=== PATIENT | male | born 1995 | race Caucasian/White ===

== ENCOUNTER 2019-06-18 06:41 | Emergency (ER) | payer OTHER ==
[~2019-06-18] VITALS: Ht 180.3 cm; Wt 77.3 kg
[2019-06-18] MEDS ORDERED: ONDANSETRON 4 MG ORAL DISINTEGRATING TAB (Q0162 PER 1MG) PO ONE (07:15)
[2019-06-18] MEDS ORDERED: ONDA4TAB6 PO (08:01)
[2019-06-18 08:22] VITALS: BP 142/62
== END 2019-06-18 08:28 | disposition home or self-care (01) ==
LOC: M ED 06:41
DX: R11.2 Nausea with vomiting, unspecified (principal); T78.1XXA Other adverse food reactions, not elsewhere classified, initial encounter; X58.XXXA Exposure to other specified factors, initial encounter; Y92.89 Other specified places as the place of occurrence of the external cause
CPT/HCPCS: 99283; Q0162